=== PATIENT | male | born 1985 | race Caucasian/White ===

== ENCOUNTER 2018-04-02 23:58 | Emergency (ER) | payer SELFPAY ==
[~2018-04-02] VITALS: Ht 177.8 cm; Wt 67.5 kg
[2018-04-03 00:09] VITALS: BP 135/84; PULSE 82; RESP 16; TEMP 98; O2SAT 99
--- NOTE | 2018-04-03 00:21 | PD ---
HPI Chief Complaint: Injury Time Seen by Provider: 00:20 Travel History International Travel<30 days: No Contact w/Intl Traveler<30days: No Traveled to known affect area: No History of Present Illness HPI Patient is a 33-year-old male presents emergency department for evaluation right ankle swelling. Patient states he is on his feet many hours a day, no history of blood clots in the past, no history of injury. States swelling is been there for the past 8-12 months, recently read online that it could be a blood clot, presented to the emergency department for further evaluation. No shortness of breath. No fevers no cough no congestion no redness mild, right ankle, associated signs and symptoms in context as above. Patient also relates a history that he fractured his ankle sometime in the past. PFSH Past Medical History Medical History: Denies Significant Hx Diminished Hearing: No Tetanus Vaccination: Unknown Influenza Vaccination: No Past Surgical History Surgical History: No Previous Surgery Social History Alcohol Use: No Tobacco Use: No Substance Use: No Allergies-Medications (Allergen,Severity, Reaction): Coded Allergies: No Known Allergies (Unverified , 04/03/18) Reported Meds & Prescriptions Reported Meds & Active Scripts Active No Active Prescriptions or Reported Medications Review of Systems Except as stated in HPI: all other systems reviewed are Neg Physical Exam Narrative GENERAL: Well-nourished, well-developed patient. SKIN: Focused skin assessment warm/dry. HEAD: Normocephalic. EYES: No scleral icterus. No injection or drainage. NECK: Supple, trachea midline. No JVD or lymphadenopathy. CARDIOVASCULAR: Regular rate and rhythm without murmurs, gallops, or rubs. RESPIRATORY: Breath sounds equal bilaterally. No accessory muscle use. GASTROINTESTINAL: Abdomen soft, non-tender, nondistended. MUSCULOSKELETAL: No cyanosis, trace amounts of edema about bilateral malleoli of the right ankle, no swelling in the calf, no tenderness in the calf, no cordlike structure. Pulse motor and sensory intact distally in all 4 extremities, compartments are soft BACK: Nontender without obvious deformity. No CVA tenderness. Data Data Last Documented VS Vital Signs Date Time Temp Pulse Resp B/P (MAP) Pulse Ox O2 Delivery O2 Flow Rate FiO2 04/03/18 00:09 98.0 82 16 135/84 (101) 99 Orders Orders Ed Discharge Order (04/03/18 00:21) MDM Medical Decision Making Medical Screen Exam Complete: Yes Emergency Medical Condition: Yes Differential Diagnosis Posttraumatic edema, dependent edema, DVT is highly unlikely and is excluded clinically by Wells criteria, acute fracture highly unlikely. Narrative Course Patient room the emergency department reassured, discussed symptomatic management including ALTA rosee and follow-up with primary care physician. He is stable for discharge. There is no indication for workup of this patient who is been having chronic swelling for the past 2 months. Diagnosis Primary Impression: Ankle swelling Qualified Codes: M25.471 - Effusion, right ankle Referrals: [facility] Patient Instructions: General Instructions, RICE Therapy (GEN) Scripts No Active Prescriptions or Reported Meds Disposition: DISCHARGE HOME Condition: Stable Jakob Chapman MD Apr 03, 2018 00:21
== END 2018-04-03 01:01 | disposition home or self-care (01) ==
LOC: NEPD 23:58
DX: M25.471 Effusion, right ankle (principal)
CPT/HCPCS: 99282